=== PATIENT | male | born 1985 | race Hispanic/Latino ===

== ENCOUNTER 2024-09-07 06:35 | Observation (INO) | payer BC ==
[2024-09-05 09:24] VITALS: BP 135/80; PULSE 62; RESP 18; TEMP 98.1
[2024-09-05 09:34] LABS: BASOPHILS # (AUTO) 0.02 K/uL (0.00-0.20); BASOPHILS % (AUTO) 0.3 % (0.0-5.0); EOSINOPHILS # (AUTO) 0.09 K/uL (0.00-0.70); EOSINOPHILS % (AUTO) 1.5 % (0.0-8.0); IMMATURE GRANULOCYTE ABSOLUTE 0.01 K/uL (0-1); LYMPHOCYTES # (AUTO) 1.9 K/uL (1.0-4.8); LYMPHOCYTES % (AUTO) 32.5 % (21.0-51.0); MEAN CORPUSCULAR HEMOGLOBIN 28.8 pg (27.0-33.0); MEAN CORPUSCULAR HGB CONC 33.3 g/dL (32.0-36.0); MEAN CORPUSCULAR VOLUME 86.4 fL (79-99); MONOCYTES # (AUTO) 0.4 K/uL (0.1-1.0); NEUTROPHILS # (AUTO) 3.4 K/uL (1.8-7.7); NEUTROPHILS % (AUTO) 58.5 % (40.0-77.0); PLATELET COUNT (AUTO) 251 K/uL (130-400); RED BLOOD CELL COUNT(AUTO) 5.21 MIL/uL (4.50-6.20); RED CELL DISTRIBUTION WIDTH 13.4 % (11.0-15.5); WHITE BLOOD COUNT (AUTO) 5.9 K/uL (4.8-10.8)
[2024-09-05 09:38] LABS: POTASSIUM 4.3 mmol/L (3.5-5.1)
[2024-09-05 09:42] LABS: INR 1.03 (0.85-1.15); PROTHROMBIN TIME 10.9 SEC (9.6-11.6)
[2024-09-05 09:43] LABS: PARTIAL THROMBOPLASTIN TIME 30.1 SEC (26.3-35.5)
[2024-09-07] VITALS (26 sets, daily range): BP systolic 109–143; BP diastolic 68–93; PULSE 74–115; RESP 16–22; TEMP 97.3–98.2; O2SAT 98–100
[~2024-09-07] VITALS: Ht 172.7 cm; Wt 110.2 kg
[~2024-09-07 06:35] MED LIST: ATOR10 PO; LOSA25TA41 PO
[2024-09-07] MEDS: ceFAZolin SODIUM 1 GM VIAL ONE (06:36)
[2024-09-07] MEDS: ceFAZolin SODIUM 2 GM VIAL ONE (06:36)
[2024-09-07] MEDS: LACTATED RINGERS 1000ML 1,000 ML IV ONE (06:59)
[2024-09-07] MEDS ORDERED: ketaMINE 50MG/ML SYRINGE 50 MG/ML DISP.SYRIN ONE (07:02)
[2024-09-07] MEDS ORDERED: FENTanyl CITRate PF 50 MCG/1 ML 2ML VIAL ONE ×2 (07:06→10:18)
[2024-09-07] MEDS ORDERED: proPOFol 10 MG/ML 20ML VIAL IV ONE (07:06)
[2024-09-07] MEDS ORDERED: LIDOCAINE PF 100MG/5ML (2%) SYRINGE 5ML ONE (07:06)
[2024-09-07] MEDS ORDERED: rocuRONium bROMide 10MG/1ML 5ML VL ONE ×2 (07:06→09:04)
[2024-09-07] MEDS ORDERED: MIDAZOLAM HCL 1 MG/ML 2ML VIAL ONE (07:21)
[2024-09-07] MEDS ORDERED: dexaMETHasone SOD PHOSPHATE 10MG/ML 1ML VIAL ONE (08:17)
[2024-09-07] MEDS ORDERED: ondanSETRON 4MG INJ ONE (08:17)
[2024-09-07] MEDS: BUPIvacaine/PF 0.5% 30ML VIAL ONE (09:05)
[2024-09-07] MEDS ORDERED: GLYCOPYRROLATE 0.2 MG/ML 5 ML VIAL ONE (09:09)
[2024-09-07] MEDS ORDERED: NEOSTIGMINE METHYLSULFATE 1MG/ML IV ONE (09:09)
[2024-09-07] MEDS ORDERED: ePHEDrine SULFate 50 MG/ML AMPULE ONE (09:12)
[2024-09-07] MEDS: FENTanyl CITRate PF 50 MCG/1 ML 2ML VIAL ONE (10:32)
--- NOTE | 2024-09-07 11:26 | PN ---
GENERAL SURGERY PROGRESS NOTE Date/Time Patient Seen: [09/07/24 1045 ] Problem List: [ ] Interval History: [POD 0. Pain tolerable w prn meds. ] Physical Examination: ABD: [incisions clean, dry and intact, Dermabond in place] Vital Signs (last 8hr) Date Time Temp Pulse Resp B/P (MAP) Pulse Ox O2 Delivery O2 Flow Rate FiO2 09/07/24 11:12 98.1 84 18 125/79 97 Nasal Cannula 2.0 09/07/24 11:07 89 19 116/75 98 Nasal Cannula 2.0 09/07/24 11:02 90 16 123/71 97 Nasal Cannula 2.0 09/07/24 10:57 82 17 127/75 98 Nasal Cannula 2.0 09/07/24 10:52 89 19 119/73 97 Nasal Cannula 2.0 09/07/24 10:47 86 19 132/76 97 Nasal Cannula 3.0 09/07/24 10:42 88 18 131/78 98 Nasal Cannula 3.0 09/07/24 10:37 85 20 143/79 99 Nonrebreathing Mask 10.0 09/07/24 10:32 84 18 143/83 99 Nonrebreathing Mask 10.0 09/07/24 10:27 87 19 137/79 99 Nonrebreathing Mask 10.0 09/07/24 10:22 97.5 96 22 132/84 99 Nonrebreathing Mask 10.0 09/07/24 06:42 97.3 84 17 114/75 98 Room Air Laboratory: [ ] Diagnostics / Radiology: [Copy/Paste Echos/Imaging Report here] Impression and Plan: [ Plan is for dc home in the next day or 2 as long as pt tolerating PO, ambulatory and pain under control. Discussed w pt and family, they understand and agree.] SURINDER EMMANUEL Sep 07, 2024 11:26
[2024-09-07] MEDS ORDERED: hydroMORPHone 0.5 MG SYG (0.5MG/0.5ML) IVP PRN (11:30)
[2024-09-07] MEDS ORDERED: PROCHLORPERAZINE 10MG/2ML INJ IV PRN (11:30)
[2024-09-07] MEDS ORDERED: ondanSETRON 4MG INJ IVP PRN (11:30)
[2024-09-07] MEDS ORDERED: ketOROlac 15MG/ML VIAL (15MG/ML) IV PRN (11:30)
--- NOTE | 2024-09-07 12:00 | OP ---
Operative Note: DATE OF PROCEDURE: 09/07/24 SURGEON: DAVID EMMANUEL MD RECOATING MACHINE OPERATOR: Franck Emmanuel MD PA-C ANESTHESIA: General and Local ANESTHESIOLOGIST[place]CHILD AND ADOLESCENT THERAPIST[place] [facility] [facility] [place] PREOPERATIVE DIAGNOSIS: Symptomatic hiatal hernia with severe GERD POSTOPERATIVE DIAGNOSIS: As above SYNOPSIS: Hiatal hernia repair with mesh, Bari, EGD performed without complication PROCEDURE: 1. Robotic assisted hiatal hernia repair with mesh reinforcement 2. Bari fundoplication 3. EGD ESTIMATED BLOOD LOSS: min, <30cc INDICATIONS: As above DESCRIPTION OF PROCEDURE: After standard precautions and preparations were undertaken a Veress needle and optical trocar were used to enter the abdominal cavity. All other instruments were placed under direct vision. The robotic system was docked in the standard fashion. We began our dissection by opening pars flaccida and identifying the right toney of the diaphragm. From there we are able to enter into the mediastinum through a nearly avascular plane. This dissection was carried circumferentially to mobilize the distal esophagus. At the end of our dissection of the right and left crura were free of unwanted attachments in the retroesophageal space and the GE junction was resting below the hiatus without any significant upward tension. We mobilize the fundus in anticipation of the fundoplication. The hiatal hernia repair was undertaken by suturing the right and left crura back in reapproximation starting at the crossing fibers and working our way upwards towards the posterior esophageal wall. Care was taken not to over tighten. A Bard two sided slowly absorbable mesh product was cut into a horseshoe shape and placed as an overlay to reinforced our repair. This was also sutured in place to maximize tissue contact with the mesh in minimize mesh migration. We then pulled the fundus through the retroesophageal window and wrapped circumferentially for a 360 green type wrap. Sutures were placed to create a wrap of approximately 4 cm in craniocaudal distance. The EGD scope was utilized throughout the case and then again at the end to ensure that the hiatal hernia repair was appropriate and not overly tightened and that the wrap was appropriate and not overly tightened. All appeared healthy and well with no signs of injury to the distal esophagus or proximal stomach. At the end of the case all instrument counts were verified as correct including needles and sponges. DAVID EMMANUEL MD Sep 07, 2024 11:59
[2024-09-07] MEDS: acetaMINOPHEN 325 MG TAB ONE (12:15)
[2024-09-07] MEDS: FAMOTIDINE 20MG VIAL IV ONE (12:15)
[2024-09-07] MEDS: HYDROcod/acetaMINOPHEN 7.5/325 MG 15 ML UDCUP PO PRN (12:28)
[2024-09-07] MEDS: LACTATED RINGERS 1000ML 1,000 ML IV SCH (12:28)
[2024-09-07] MEDS: ENOXAPARIN SODIUM 40 MG/0.4 ML SYRINGE SQ SCH (12:34)
[2024-09-07] MEDS: FAMOTIDINE 20MG VIAL IV SCH (21:19)
[2024-09-08] VITALS (7 sets, daily range): BP systolic 106–119; BP diastolic 54–71; PULSE 77–91; RESP 16–20; TEMP 98–99; O2SAT 96
[2024-09-08] MEDS: atorVAStatin 20 MG TABLET PO SCH (08:18)
[2024-09-08] MEDS: LoSARTan 25 MG TABLET PO SCH (08:18)
--- NOTE | 2024-09-08 11:10 | NUR ---
DCP: HOME Pt works for [employer], is to Deloris Thomason [phone]. They own their home, pt denies any issues with affording home, food and utilities. Prior to surgery pt reports he was working, active and driving, able to complete his ADLS without assistance. Pt used no DME or in home care services. Ptis seen at [facility] by Dr Bowens for medical care and meds, uses [facility] for rx. Pt denies need for SNF and states he will return [place], family will assist as needed at [place]. Addendum: 09/08/24 at 1132 by DAY HERNANDEZ Amended: Links added.
--- NOTE | 2024-09-08 14:41 | DS ---
Discharge Summary HOSPITAL COURSE SUMMARY: [] ELECTRIC POWER MACHINE OPERATOR(S): [] PROCEDURES: [] PROBLEM(S): [] DISCHARGE INSTRUCTIONS: [] Home Meds Reported Medications Atorvastatin Calcium (LIPITOR) 20 Mg Tab, 20 MG PO DAILY, TAB 09/05/24 Losartan Potassium (Losartan Potassium) 25 Mg Tablet, 25 MG PO DAILY, TAB 09/05/24 IVCKI OROZCO PEDIATRIC LICENSED PRACTICAL NURSE Sep 08, 2024 14:41
--- NOTE | 2024-09-08 17:07 | NUR ---
PATIENT SIGNED DISCHARGE PAPER. IV REMOVED INTACT. ALL QUESTIONS AND CONCERNS ANSWERED.
--- NOTE | 2024-09-08 17:15 | NUR ---
PATIENT DISCHARGE HOME VIA PERSONAL VEHICLE WITH .
== END 2024-09-08 17:15 | disposition home or self-care (01) ==
LOC: DAH 06:35 → DAHIP 06:36 → DAH 06:36 → 4CH 11:35
PROVIDERS: ADMIT Surgery; ATTEND Surgery
DX: K44.9 Diaphragmatic hernia without obstruction or gangrene (principal); K21.9 Gastro-esophageal reflux disease without esophagitis; E66.9 Obesity, unspecified; R14.0 Abdominal distension (gaseous); Z79.899 Other long term (current) drug therapy; Z68.36 Body mass index [BMI] 36.0-36.9, adult; Z86.2 Personal history of diseases of the blood and blood-forming organs and certain disorders involving the immune mechanism
CPT/HCPCS: 43282; S2900; 36415; 43235; 80048; 85025; 85610; 85730; 86850; 86900; 86901; 96372; 96374; 96376; G0378; J0690; J1100; J1650; J2003; J2250; J2405; J2704; J2710; J3010; J3490; J7120; A4215; A4216; A4221; A4222; A4223; A4600; A4663; A4930; A6260; C1781; J0665